=== PATIENT | female | born 1960 | race Caucasian/White ===

== ENCOUNTER 2019-12-16 15:28 | Outpatient (CLI) | payer OTHER, SELFPAY ==
--- NOTE | 2019-12-16 15:31 | ECG_ITS ---
Measurements Intervals [place] Rate: 69 P: 46 [place]: 191 QRS: -16 QRSD: 108 T: 19 QT: 403 QTc: 432 Interpretive Statements SINUS RHYTHM POOR R WAVE PROGRESSION, ANTERIOR LEADS BORDERLINE ST-T WAVE ABNORMALITY- ANTERIOR LEADS BASELINE ARTIFACT- I, III, AVL, AVF, V6 BORDERLINE ECG Electronically Signed On 12-16-2019 16:39:32 CDT by Reed Thompson D.O.
[2019-12-16 16:14] LABS: Blood Urea Nitrogen 38 mg/dL (7-17); Calcium 9.7 mg/dL (8.4-10.2); Carbon Dioxide 31 mmol/L (22-30); Chloride 102 mmol/L (98-107); Estimated Glomerular Filt Rate 50; Glucose 89 mg/dL (65-105); Potassium 4.2 mmol/L (3.4-5.0); Sodium 138 mmol/L (137-145)
== END 2019-12-16 15:29 | disposition home or self-care (01) ==
LOC: ANHSURGERY 15:31
PROVIDERS: Anesthesiology; PCP Family Medicine; Visit Provider Orthopaedic Surgery
DX: I10 Essential (primary) hypertension (principal)
CPT/HCPCS: 36415; 80048; 93005

== ENCOUNTER 2020-02-27 00:04 | Outpatient (CLI) | payer OTHER, SELFPAY ==
[2020-02-27 18:00] LABS: SARS-CoV-2 RNA PCR Negative
== END 2020-02-27 00:05 | disposition home or self-care (01) ==
LOC: ANHCOVIDDT 00:04
PROVIDERS: PCP Family Medicine; Visit Provider Orthopaedic Surgery
DX: Z01.818 Encounter for other preprocedural examination (principal); Z11.59 Encounter for screening for other viral diseases
CPT/HCPCS: 87635; C9803; U0003

== ENCOUNTER 2020-03-01 00:55 | Day surgery (SDC) | payer OTHER, SELFPAY ==
[2019-12-15 15:32] VITALS: BMI 43.8
--- NOTE | 2020-02-19 12:58 | PC.NURSE ---
PT HEALTH HISTORY AND MEDICATIONS REVIEWED. NEW INSTRUCTIONS GIVEN. PT STATES UNDERSTANDING.
[2020-03-01] VITALS (9 sets, daily range): BP systolic 96–147; BP diastolic 55–71; PULSE 63–75; RESP 14–21; TEMP 36.4–36.9; O2SAT 93–100
--- NOTE | 2020-03-01 07:31 | WPDHPUPDATE1 ---
History and Physical Update Update Date/Time: 03/01/20 07:31 History and Physical has been reviewed, including an updated exam of the patient. There are NO changes in the patient's condition. Risks, benefits, and alternatives have been discussed and questions answered. Patient agrees to proceed with procedure.
[2020-03-01] MEDS: LACTATED RINGERS 1,000 ML 30 ML IV CONT ×2 (08:05→10:52)
[2020-03-01] MEDS: CELECOXIB 200 MG CAPSULE PO (08:14)
--- NOTE | 2020-03-01 08:34 | WPDANESEPPF ---
Anes - Initial Pre Proc Eval Procedure: Operation Date: 03/01/20 09:00 Proposed Procedures p Right Knee Arthroscopy, Proceed As Indicated - Varun Hilton MD Date/Time: 03/01/20 08:34 Surgeon: Varun Hilton MD Pre Op Diagnosis: Right Lateral Meniscus Tear Patient Data Age: 59 Gender: F Height: 5 ft 6 in Weight: 119.5 kg Last Vital Signs Temp 98.5 F 03/01/20 08:33 Pulse 75 03/01/20 08:33 Resp 18 03/01/20 08:33 BP 147/70 H 03/01/20 08:33 Pulse Ox 98 03/01/20 08:33 Allergies Allergy/AdvReac Type Severity Reaction Status Date / Time Penicillins Allergy Mild Hives Verified 03/01/20 07:19 UNKNOWN ANTIBIOTICS Allergy Mild skin Uncoded 01/06/20 09:19 irritation Home Medications Medication Instructions Recorded Confirmed Type acetaminophen 500 mg tablet 500 mg PO Q4H PRN 08/21/19 03/01/20 History ascorbic acid (vitamin C) 500 mg 500 mg PO DAILY 08/21/19 03/01/20 History tablet aspirin 81 mg tablet,delayed 81 mg PO DAILY 08/21/19 03/01/20 History release coenzyme Q10 100 mg capsule 100 mg PO DAILY 08/21/19 03/01/20 History qkpnhpioimh-kjiplesnv-wcek281-hyal 1 tablet PO BID 08/21/19 03/01/20 History 750 mg-100 mg-125 mg-1.65 mg tablet loratadine 10 mg tablet 10 mg PO DAILY 08/21/19 03/01/20 History umxkmvui-dadqvwh-mjjt-iron fum 18 1 tablet PO DAILY 08/21/19 03/01/20 History mg-folic 600 mcg-vit K 80 mcg tablet triamterene 75 1 tablet PO DAILY #90 tablet 09/09/19 03/01/20 Rx mg-hydrochlorothiazide 50 mg tablet chlorhexidine gluconate 4 % 1 applic TOPICAL ONCE #237 ml 10/26/19 03/01/20 Rx topical liquid lisinopril 20 mg tablet 20 mg PO DAILY #90 tablet 11/16/19 03/01/20 Rx iodine (kelp) 0.15 mg tablet 520 mcg PO DAILY tablet 12/07/19 03/01/20 History lecithin 1,200 mg capsule 1,200 mg PO DAILY 12/07/19 03/01/20 History vitamin E 800 unit PO DAILY 12/15/19 03/01/20 History cholecalciferol (vitamin D3) 125 5,000 unit PO 3XW 01/06/20 03/01/20 History mcg (5,000 unit) capsule guaifenesin 1,200 mg tablet, 1,200 mg PO PRN PRN tablet 01/06/20 03/01/20 History extended release 12 hr turmeric root extract 500 mg 500 mg PO DAILY 01/06/20 03/01/20 History capsule levothyroxine 75 mcg tablet 75 mcg PO QAM #90 tablet 01/20/20 03/01/20 Rx fluticasone propionate 50 2 spray NASAL DAILY #18.2 ml 02/03/20 03/01/20 Rx mcg/actuation nasal spray,suspension meloxicam 7.5 mg tablet 7.5 mg PO DAILY #90 tablet 02/03/20 03/01/20 Rx Patient hx anesthesia problems: none Family hx anesthesia problems: none PMFSH Past Medical History Medical History (Updated 02/23/20 @ 13:37 by ADA Armendariz) Basal cell carcinoma Chronic low back pain Dyslipidemia (high LDL; low HDL) Environmental allergies Hypertension Hypothyroidism PAMELA (obstructive sleep apnea) Osteoarthritis Pre-diabetes Rheumatic fever Surgical History Surgical History History of 1989 and 1995 S/P lumbar spinal fusion 2017 Family History Family History (Updated 02/23/20 @ 13:38 by ADA Armendariz) Sibling Diabetes mellitus Family history of cardiovascular disease Father Family history of cardiovascular disease Grandparent Family history of cardiovascular disease Other Breast cancer, Onset Age: 60 Other No problems noted. Other Hypertension Social History Social History (Updated 02/23/20 @ 13:40 by ADA Armendariz) Social History: Currently not working due to COVID-19. 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
[2020-03-01] MEDS: ceFAZolin 2 GM/D5W 50 ML 2 GM/50 ML BAG IVPB (09:33)
--- NOTE | 2020-03-01 10:31 | SUR.OPER ---
1 ml of depo-medrol given in right knee per Dr Hilton
--- NOTE | 2020-03-01 10:54 | PM.OP ---
Procedure Note - Brief Procedure Note - Brief Date of procedure: 03/01/20 Pre-op diagnosis: Right Lateral Meniscus Tear Post-op diagnosis: same Procedure performed: right knee scope Anesthesia: GETA Surgeon: Varun Hilton MD Estimated blood loss (mL): 5 Complications: No immediate complications Condition: stable Disposition: PACU
--- NOTE | 2020-03-01 13:04 | OP_ITS ---
DATE OF PROCEDURE: 03/01/2020 PREOPERATIVE DIAGNOSIS: Right knee medial meniscus tear and lateral meniscus tear and chondromalacia. POSTOPERATIVE DIAGNOSIS: Right knee medial meniscus tear and lateral meniscus tear and chondromalacia with full-thickness defect of the lateral compartments. PROCEDURE: Right knee arthroscopy with partial medial meniscectomy, partial lateral meniscectomy, major synovectomy, and chondroplasty. ANESTHESIA: General. COMPLICATIONS: None. INDICATIONS: This is a 59-year-old female with a history of right knee pain. She was diagnosed with medial and lateral meniscus tears and some mild DJD. She was indicated for right knee arthroscopy. The patient was taken to the operating room in stable condition and placed in supine position. General anesthesia was induced and the right lower extremity prepped and draped sterilely from the toes to the thigh. Superomedial portal was used for the inflow cannula. Inferolateral portal was used for the camera. The camera was introduced. There was grade 2 chondromalacia of the patella and to the trochlea of the femur, there was significant amount of synovitis in the superior medial compartment with large plica band as well. There was also significant synovitis in Hoffa synovium. The medial compartment was entered, there was a small complex tear of the medial meniscus. This was resected after a 4-0 was established with a shaver and a biter and the medial femoral condyle also had about 2 cm grade 2 chondromalacia defect and that was resected and smoothed out with the shaver. Next, the ACL was identified and was intact. Synovectomy was performed in that region. The lateral compartment was entered. There was a large complex tear to the lateral meniscus, pain in the posterior horn. There was also full-thickness defect of the lateral femoral condyle and the lateral plateau. The meniscus tear then was resected and then limited chondroplasty was performed along the lateral compartment as well. Synovectomy was performed on the impinging synovium in the lateral compartment. Next, the patella and the trochlea underwent chondroplasty until there was a smoother surface. The wound was irrigated thoroughly. The instruments were removed. The incisions were approximated with 4-0 nylon suture. Sterile dressing was applied. The patient was extubated. Nic I MT: Annie
--- NOTE | 2020-03-01 13:43 | SUR.PHASEII ---
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
== END 2020-03-01 13:56 | disposition home or self-care (01) ==
PROVIDERS: PCP Family Medicine; Visit Provider Orthopaedic Surgery
PROC: (CPT 29870; principal; 2020-03-01 09:00)
DX: S83.231A Complex tear of medial meniscus, current injury, right knee, initial encounter (principal); S83.271A Complex tear of lateral meniscus, current injury, right knee, initial encounter; X50.0XXA Overexertion from strenuous movement or load, initial encounter; M94.261 Chondromalacia, right knee; M65.861 Other synovitis and tenosynovitis, right lower leg; I10 Essential (primary) hypertension; E78.5 Hyperlipidemia, unspecified; E03.9 Hypothyroidism, unspecified; R73.03 Prediabetes; G47.33 Obstructive sleep apnea (adult) (pediatric); G89.29 Other chronic pain; M54.9 Dorsalgia, unspecified; Z79.82 Long term (current) use of aspirin; Z98.1 Arthrodesis status; Z87.891 Personal history of nicotine dependence; E66.01 Morbid (severe) obesity due to excess calories; Z68.41 Body mass index [BMI] 40.0-44.9, adult
CPT/HCPCS: 29880; A9270; J0131; J0690; J1040; J1100; J2250; J2405; J2704; J3010; J7120

== ENCOUNTER 2020-05-10 16:48 | Outpatient (CLI) | payer OTHER, SELFPAY ==
--- NOTE | ~2020-05-10 | MM_ITS ---
EXAMINATION: MM screening rebecca BI w essie HISTORY: Screening TECHNIQUE: Craniocaudal and mediolateral oblique 3-D tomosynthesis images were obtained and synthetic 2-D images were generated. CAD analysis was submitted and interpreted. COMPARISON: Comparison to multiple prior studies sequentially, with oldest reviewed study dated 10/09. BREAST PARENCHYMAL COMPOSITION: The breasts are almost entirely fatty. FINDINGS: There is no evidence of suspicious mass, calcification, or architectural distortion to sugg est malignancy in either breast. There has been no suspicious interval change. IMPRESSION: 1. No mammographic evidence of malignancy. 2. Recommend routine screening mammography in one year. BI-RADS Category 1: Negative Reviewed, dictated and finalized at location A.
== END 2020-05-10 16:49 | disposition home or self-care (01) ==
LOC: ANHIMG 16:50
PROVIDERS: PCP Family Medicine; Visit Provider Obstetrics & Gynecology
DX: Z12.31 Encounter for screening mammogram for malignant neoplasm of breast (principal)
CPT/HCPCS: 77063; 77067

== ENCOUNTER 2021-04-14 16:47 | Emergency (ER) | payer OTHER, SELFPAY ==
[2021-04-14 16:53] VITALS: BP 163/67; PULSE 71; RESP 12; TEMP 36.8; O2SAT 99
--- NOTE | 2021-04-14 16:53 | ED.EYEPROB ---
HPI - Eye Problem General Chief complaint: Eye Problems Stated complaint: eye irritation Time Seen by Provider: 04/14/21 16:53 Source: patient and RN notes reviewed Mode of arrival: ambulatory Limitations: no limitations History of Present Illness HPI Narrative: 60-year-old female presents to the [facility] with complaints of redness and goopiness to the left eye that started yesterday. States that she normally uses allergy eyedrops but has not used any today. Denies any blurry vision or change in vision. Patient does not wear contacts. Denies any trauma to the eye. Related Data Home Medications Medication Instructions Recorded Confirmed ascorbic acid (vitamin C) 500 mg 500 mg PO DAILY 08/21/19 04/14/21 tablet aspirin 81 mg tablet,delayed 81 mg PO DAILY 08/21/19 04/14/21 release coenzyme Q10 100 mg capsule 100 mg PO DAILY 08/21/19 04/14/21 ocgzfslrbcv-bshkdymib-tyne136-hyal 1 tablet PO BID 08/21/19 04/14/21 750 mg-100 mg-125 mg-1.65 mg tablet loratadine 10 mg tablet 10 mg PO DAILY 08/21/19 04/14/21 yznumeaf-ncuwhgq-ufjk-iron fum 18 1 tablet PO DAILY 08/21/19 04/14/21 mg-folic 600 mcg-vit K 80 mcg tablet iodine (kelp) 0.15 mg tablet 520 mcg PO DAILY tablet 12/07/19 04/14/21 lecithin 1,200 mg capsule 1,200 mg PO DAILY 12/07/19 04/14/21 vitamin E 800 unit PO DAILY 12/15/19 04/14/21 cholecalciferol (vitamin D3) 125 5,000 unit PO 3XW 01/06/20 04/14/21 mcg (5,000 unit) capsule Allergies Allergy/AdvReac Type Severity Reaction Status Date / Time Penicillins Allergy Mild Hives Verified 04/14/21 17:00 UNKNOWN ANTIBIOTICS Allergy Mild skin Uncoded 07/20/20 15:53 irritation Review of Systems Review of Systems: All systems reviewed & are unremarkable except as noted in HPI and below Constitutional: Constitutional: Reports no additional constitutional complaints, Denies chills and Denies fever(s) Eyes: Eyes: Reports as per HPI, Denies change in vision and Denies photophobia Comments: Discharge and irritation, crusted this morning ENT: Reports system reviewed and no additional complaints, except as documented, Denies vertigo, Denies dizziness and Denies nasal congestion Cardiovascular: Cardiovascular: Reports no additional cardiovascular complaints and Denies chest pain Respiratory: Respiratory: Reports no additional respiratory complaints, Denies cough, Denies dyspnea and Denies wheezing Gastrointestinal: Gastrointestinal: Reports no additional gastrointestinal complaints Musculoskeletal: Musculoskeletal: Reports no additional musculoskeletal complaints Integumentary/Breasts: Skin/Breast: Reports system reviewed and no additional complaints, except as docu Neurologic: Reports system reviewed and no additional complaints, except as documented Psychiatric: Psychiatric: Reports no additional psychiatric complaints Allergic/Immunologic: Allergic/Immunologic: Reports no additional allergic/immunologic complaints [facility] Past Medical History Medical History Basal cell carcinoma BMI greater than 40 Chronic low back pain Degenerative joint disease of knee Dyslipidemia (high LDL; low HDL) Environmental allergies Hypertension Hypothyroidism PAMELA (obstructive sleep apnea) Osteoarthritis Pre-diabetes Rheumatic fever Surgical History Surgical History History of arthroscopy of right knee 03/19 - meniscus repair History of basal cell carcinoma excision 2013 - upper lip History of 1989 and 1995 History of endometrial ablation 2004 S/P lumbar spinal fusion 2016 Family History Family History Sibling Diabetes mellitus Family history of cardiovascular disease Father Family history of cardiovascular disease Grandparent Family history of cardiovascular disease Other Breast cancer, Onset Age: 60 Other No problems noted.
== END 2021-04-14 17:09 | disposition home or self-care (01) ==
PROVIDERS: Emergency Provider Nurse Practitioner; PCP Family Medicine
DX: H10.32 Unspecified acute conjunctivitis, left eye (principal); Z87.891 Personal history of nicotine dependence; M17.10 Unilateral primary osteoarthritis, unspecified knee; R78.5 Finding of other psychotropic drug in blood; I10 Essential (primary) hypertension; E03.9 Hypothyroidism, unspecified; G47.33 Obstructive sleep apnea (adult) (pediatric); M19.90 Unspecified osteoarthritis, unspecified site; R73.03 Prediabetes
CPT/HCPCS: 99213; G0463

== ENCOUNTER 2021-05-11 15:52 | Outpatient (CLI) | payer OTHER, SELFPAY ==
--- NOTE | ~2021-05-11 | MM_ITS ---
EXAMINATION: MM screening rebecca BI w essie HISTORY: Screening TECHNIQUE: Craniocaudal and mediolateral oblique 3-D tomosynthesis images were obtained and synthetic 2-D images were generated. CAD analysis was submitted and interpreted. COMPARISON: Comparison to multiple prior studies sequentially, with oldest reviewed study dated 10/11. BREAST PARENCHYMAL COMPOSITION: The breasts are almost entirely fatty. FINDINGS: There is no evidence of suspicious mass, calcification, or architectural distortion to sugg est malignancy in either breast. There has been no suspicious interval change. IMPRESSION: 1. No mammographic evidence of malignancy. 2. Recommend routine screening mammography in one year. BI-RADS Category 1: Negative Reviewed, dictated and finalized at location A.
== END 2021-05-11 15:53 | disposition home or self-care (01) ==
LOC: ANHIMG 15:56
PROVIDERS: PCP Family Medicine; Visit Provider Family Medicine
DX: Z12.31 Encounter for screening mammogram for malignant neoplasm of breast (principal)
CPT/HCPCS: 77063; 77067

== ENCOUNTER → 2021-09-27 01:41 | Outpatient (CLI) | payer OTHER, SELFPAY ==
[2021-09-28 02:21] LABS: SARS-CoV-2 RNA PCR Negative
== END ==
PROVIDERS: PCP Family Medicine; Visit Provider Nurse Practitioner
DX: Z20.822 Contact with and (suspected) exposure to COVID-19 (principal)
CPT/HCPCS: C9803; U0003; U0005

== ENCOUNTER 2022-06-05 08:17 | Outpatient (CLI) | payer OTHER, SELFPAY ==
--- NOTE | ~2022-06-05 | MM_ITS ---
EXAMINATION: MM screening rebecca BI w essie HISTORY: Screening mammogram TECHNIQUE: Craniocaudal and mediolateral oblique 3-D tomosynthesis images were obtained and synthetic 2-D images were generated. CAD analysis was submitted and interpreted. COMPARISON: 05/11/2021, 04/30/2020, 04/13/2019 bilateral screening mammogram examinations BREAST PARENCHYMAL COMPOSITION: The breasts are almost entirely fatty. FINDINGS: Scattered bilateral benign calcifications. There is no evidence of suspicious mass, calcifi cation, or architectural distortion to suggest malignancy in either breast. There has been no suspici ous interval change. IMPRESSION: 1. No mammographic evidence of malignancy. 2. Recommend routine screening mammography in one year. BI-RADS Category 1: Negative Reviewed, dictated and finalized at location A.
== END 2022-06-05 08:18 | disposition home or self-care (01) ==
LOC: ANHIMG 08:18
PROVIDERS: PCP Family Medicine; Visit Provider Obstetrics & Gynecology
DX: Z12.31 Encounter for screening mammogram for malignant neoplasm of breast (principal)
CPT/HCPCS: 77063; 77067

== ENCOUNTER 2023-05-10 01:50 | Day surgery (SDC) | payer OTHER, SELFPAY ==
[2023-05-01 10:59] VITALS: BMI 45.6
[2023-05-10 12:10] VITALS: BP 166/91; PULSE 68; RESP 18; TEMP 36.2; O2SAT 100; BMI 43.9
[2023-05-10] MEDS: LACTATED RINGERS 1,000 ML 150 ML IV CONT (12:41)
--- NOTE | 2023-05-10 12:56 | WPDANESEPPF ---
Anes - Initial Pre Proc Eval Procedure: Operation Date: 05/10/23 13:30 Proposed Procedures p Screening Colonoscopy - Korey Arauz MD Date/Time: 05/10/23 12:56 Surgeon: Korey Arauz MD Pre Op Diagnosis: neoplasm screening, hx colon polyps Patient Data Age: 62 Gender: F Height: 1.68 m Weight: 123.6 kg Last Vital Signs Temp 97.1 F L 05/10/23 12:10 Pulse 68 05/10/23 12:10 Resp 18 05/10/23 12:10 BP 166/91 H 05/10/23 12:10 Pulse Ox 100 05/10/23 12:10 O2 Del Method Room Air 05/10/23 12:10 Allergies Allergy/AdvReac Type Severity Reaction Status Date / Time amoxicillin Allergy Intermediate Hives Verified 05/10/23 12:16 Penicillins Allergy Intermediate Hives Verified 05/10/23 12:16 UNKNOWN ANTIBIOTICS Allergy Mild skin Uncoded 05/10/23 12:16 irritation Home Medications Medication Instructions Recorded Confirmed Type ascorbic acid (vitamin C) 500 mg 500 mg PO DAILY 08/21/19 05/10/23 History tablet lsimfcekvgx-mpwlfbuun-xwel982-hyal 1 tablet PO BID 08/21/19 05/10/23 History 750 mg-100 mg-125 mg-1.65 mg tablet (Glucosamine Chondroit Complx Advan) loratadine 10 mg tablet 10 mg PO DAILY 08/21/19 05/10/23 History dhipncgn-yyvnsbr-bhuk-iron fum 18 1 tablet PO DAILY 08/21/19 05/10/23 History mg-folic 600 mcg-vit K 80 mcg tablet (Multi For Her) lecithin 1,200 mg capsule 1,200 mg PO DAILY 12/07/19 05/10/23 History vitamin E 268 mg (400 unit) capsule 800 unit PO DAILY 12/15/19 05/10/23 History cholecalciferol (vitamin D3) 125 5,000 unit PO .QOD 09/11/21 05/10/23 History mcg (5,000 unit) capsule coenzyme Q10 200 mg capsule 200 mg PO DAILY #90 caps 01/29/23 05/10/23 Rx meloxicam 7.5 mg tablet 7.5 mg PO DAILY #90 tabs 03/26/23 05/10/23 Rx omeprazole 20 mg capsule,delayed 20 mg PO DAILY #90 caps 03/26/23 05/10/23 Rx release levothyroxine 75 mcg tablet 75 mcg PO DAILY #90 tabs 04/24/23 05/10/23 Rx lisinopril 20 mg tablet 20 mg PO DAILY #90 tabs 04/24/23 05/10/23 Rx triamterene 75 1 tablet PO DAILY #90 tabs 04/24/23 05/10/23 Rx mg-hydrochlorothiazide 50 mg tablet rosuvastatin 5 mg tablet (Crestor) 5 mg PO QHS #90 tabs 04/25/23 05/10/23 Rx iodine (kelp) 1 tablet PO 5XW 05/01/23 05/10/23 History olopatadine 0.2 % eye drops 1 drp EACH EYE DAILY 05/01/23 05/10/23 History Patient hx anesthesia problems: none Family hx anesthesia problems: none Results Review: All pre-operative results and documents have been reviewed as part of the pre-operative evaluation. [facility] Past Medical History Medical History Basal cell carcinoma BMI greater than 40 Chronic low back pain Degenerative joint disease of knee Dyslipidemia (high LDL; low HDL) Environmental allergies History of colon polyps Hypertension Hypothyroidism PAMELA (obstructive sleep apnea) Osteoarthritis Pre-diabetes Rheumatic fever Screening mammogram, encounter for Shingles (~12/2020) Surgical History Surgical History History of arthroscopy of right knee (~02/2020) 03/19 - meniscus repair History of basal cell carcinoma excision (~2013) 2013 - upper lip History of 1989 and 1995 History of endometrial ablation (~2004) 2004 S/P lumbar spinal fusion (~2016) 2016 Family History Family History Sibling Diabetes mellitus Family history of cardiovascular disease Father Family history of cardiovascular disease Grandparent Family history of cardiovascular disease Other Breast cancer, Onset Age: 60 Other No problems noted. Other Hypertension Social History Social History Social History: Currently not working due to [employer]. 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 Smoking packs per day: 1 Smoking cigarettes per day: 20.0 Years smoked: 10 Smoking pack
--- NOTE | 2023-05-10 13:23 | PM.HPGS ---
History of Present Illness History of Present Illness Consent: Risks, benefits, and alternatives have been discussed and questions answered. Patient agrees to proceed with procedure. Chief complaint: neoplasm screening, hx colon polyps Narrative: Mayra Monroy is a 62 year old female Presents for screening colonoscopy. Patient's current weight appetite and bowel movements are normal. Patient denies abdominal pain. She has had no bleeding. She does have a prior history of colon polyps in 2010. Per colonoscopy 2018 was unremarkable. Family history is significant both her mother and sister have had colon polyps. Review of Systems Review of Systems: Review of systems noncontributory. [facility] Past Medical History Medical History Basal cell carcinoma BMI greater than 40 Chronic low back pain Degenerative joint disease of knee Dyslipidemia (high LDL; low HDL) Environmental allergies History of colon polyps Hypertension Hypothyroidism PAMELA (obstructive sleep apnea) Osteoarthritis Pre-diabetes Rheumatic fever Screening mammogram, encounter for Shingles (~12/2020) Surgical History Surgical History History of arthroscopy of right knee (~02/2020) 03/19 - meniscus repair History of basal cell carcinoma excision (~2013) 2013 - upper lip History of 1989 and 1995 History of endometrial ablation (~2004) 2004 S/P lumbar spinal fusion (~2016) 2016 Family History Family History Sibling Diabetes mellitus Family history of cardiovascular disease Father Family history of cardiovascular disease Grandparent Family history of cardiovascular disease Other Breast cancer, Onset Age: 60 Other No problems noted. Other Hypertension Social History Social History Social History: Currently not working due to [employer]. 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 Smoking packs per day: 1 Smoking cigarettes per day: 20.0 Years smoked: 10 Smoking pack-years: 10.00 Smoking status: Former smoker Tobacco type: cigarettes Smoking end date: 09/30/85 Alcohol intake: never Substance use: never Substance use type: does not use Lack of Transportation: No Lack of Food: Never True Current Housing: I Have Housing Concerned About Future Housing: No Difficulty Paying Gas/Electric Bills: No Difficulty Paying for Meds: No Currently Unemployed: No Education: High School Diploma/GED Difficulty w/ Childcare or Family Care: No Living arrangements: with family Occupation/Education: occupation 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 [employer] Gender identity (if verbalized by the patient): Female Sexual Orientation (if Verbalized by the Patient): Straight or Heterosexual Spiritual care concerns: No Meds Home Medications and Allergies Home Medications Medication Instructions Recorded Confirmed Type ascorbic acid (vitamin C) 500 mg 500 mg PO DAILY 08/21/19 05/10/23 History tablet jugpxybulba-jqievuobk-hbqx696-hyal 1 tablet PO BID 08/21/19 05/10/23 History 750 mg-100 mg-125 mg-1.65 mg tablet (Glucosamine Chondroit Complx Advan) loratadine 10 mg tablet 10 mg PO DAILY 08/21/19 05/10/23 History hqkmuxfy-kunpwxt-qpbb-iron fum 18 1 tablet PO DAILY 08/21/19 05/10/23 History mg-folic 600 mcg-vit K 80 mcg tablet (Multi For Her) lecithin 1,200 mg capsule 1,200 mg PO DAILY 12/07/19 05/10/23 History vitamin E 268 mg (400 unit) capsule 800 unit PO DAILY 12/15/19 05/10/23 History cholecalciferol (vitamin D3) 125 5,000 unit PO .QOD 09/11/21 05/10/23 History mcg (5,000 unit) capsule coenzyme Q10 200 mg capsule 200 mg PO DAILY #90 caps 01/29/23 05/10/23 Rx meloxicam 7.5 mg tablet 7.5 mg PO DAILY #90 tabs 03/26/23 05/10/23
[2023-05-10 14:00] VITALS: BP 94/53; PULSE 71; RESP 23; O2SAT 97
[2023-05-10 14:10] VITALS: BP 101/60; PULSE 67; RESP 20; O2SAT 97
[2023-05-10 14:20] VITALS: BP 128/62; PULSE 65; RESP 20; O2SAT 99
== END 2023-05-10 14:31 | disposition home or self-care (01) ==
PROVIDERS: PCP Family Medicine; Visit Provider Internal Medicine Gastroenterology
PROC: 0DJD8ZZ Inspection of Lower Intestinal Tract, Via Natural or Artificial Opening Endoscopic (ICD-10-PCS; CPT 45378; principal; 2023-05-10 13:30)
DX: Z12.11 Encounter for screening for malignant neoplasm of colon (principal); K64.8 Other hemorrhoids; K57.32 Diverticulitis of large intestine without perforation or abscess without bleeding; Z86.010 Personal history of colon polyps; I10 Essential (primary) hypertension; E03.9 Hypothyroidism, unspecified; G47.33 Obstructive sleep apnea (adult) (pediatric); E78.5 Hyperlipidemia, unspecified; Z87.891 Personal history of nicotine dependence; E66.01 Morbid (severe) obesity due to excess calories; Z68.41 Body mass index [BMI] 40.0-44.9, adult
CPT/HCPCS: 45378; J2704; J7120

== ENCOUNTER 2023-07-18 08:56 | Outpatient (CLI) | payer MEDICARE, SELFPAY ==
--- NOTE | ~2023-07-18 | MM_ITS ---
EXAMINATION: MM screening rebecca BI w essie HISTORY: Screening TECHNIQUE: Craniocaudal and mediolateral oblique 3-D tomosynthesis images were obtained and synthetic 2-D images were generated. CAD analysis was submitted and interpreted. COMPARISON: Comparison to multiple prior studies sequentially, with oldest reviewed study dated 10/22. BREAST PARENCHYMAL COMPOSITION: The breasts are almost entirely fatty. FINDINGS: There is no evidence of suspicious mass, calcification, or architectural distortion to sugg est malignancy in either breast. There has been no suspicious interval change. IMPRESSION: 1. No mammographic evidence of malignancy. 2. Recommend routine screening mammography in one year. BI-RADS Category 1: Negative Reviewed, dictated and finalized at location A.
== END 2023-07-18 08:57 | disposition home or self-care (01) ==
PROVIDERS: PCP Family Medicine; Visit Provider Obstetrics & Gynecology
DX: Z12.31 Encounter for screening mammogram for malignant neoplasm of breast (principal)
CPT/HCPCS: 77063; 77067

== ENCOUNTER 2023-08-20 14:35 | Outpatient (CLI) | payer MEDICARE, SELFPAY | END 2023-08-20 14:36 | disposition home or self-care (01) | LOC: ANHLAB 14:37 | PROVIDERS: PCP Family Medicine; Visit Provider Family Medicine | DX: R05.9 Cough, unspecified (principal) | CPT/HCPCS: 87634 ==

== ENCOUNTER 2024-08-10 10:58 | Outpatient (CLI) | payer MEDICARE, SELFPAY ==
--- NOTE | ~2024-08-10 | MM_ITS ---
EXAMINATION: MM screening [facility] BI w essie HISTORY: Screening mammogram TECHNIQUE: Craniocaudal and mediolateral oblique 3-D tomosynthesis images were obtained and synthetic 2-D images were generated. CAD analysis was submitted and interpreted. COMPARISON: 07/18/2023, 06/05/2022, 05/11/2021, 05/10/2020 BREAST PARENCHYMAL COMPOSITION:Not Dense. The breasts are almost entirely fatty FINDINGS: No suspicious mass, calcification, or architectural distortion are identified in either marty ast to suggest malignancy. There has been no suspicious interval change. IMPRESSION: No mammographic evidence of malignancy. Recommend routine screening mammography in one year. BI-RADS Category 1: Negative Reviewed, dictated and finalized at location . [employer]
== END 2024-08-10 10:59 | disposition home or self-care (01) ==
LOC: MICIMG 11:00
PROVIDERS: PCP Obstetrics & Gynecology; Visit Provider Obstetrics & Gynecology
DX: Z12.31 Encounter for screening mammogram for malignant neoplasm of breast (principal)
CPT/HCPCS: 77063; 77067

== ENCOUNTER 2024-12-29 10:21 | Outpatient (CLI) | payer MEDICARE, SELFPAY ==
--- NOTE | ~2024-12-29 | DEXA_ITS ---
Bone Density Report Name: ELIANA CONNOLLY Age: 64 Sex: Female Ethnicity: White Date of : 1960 Indication: postmenopausal; screening for osteoporosis; Referring Provider: OSVALDO RODRIGUES Study: Bone densitometry was performed. Exam Date: December 29, 2024 Accession number: [id number] Bone Density: Region BMD T-score Z-score Classification AP Spine(L3, L4) 1.265 1.5 3.5 Normal Femoral Neck (Left) 1.012 1.5 3.1 Normal Total Hip (Left) 1.239 2.4 3.7 Normal Femoral Neck (Right) 1.050 1.8 3.4 Normal Total Hip (Right) 1.190 2.0 3.3 Normal Total Hip Mean 1.215 2.2 3.5 Normal World Health Organization criteria for BMD impression classify patients as: Normal (T-score at or above -1.0), Osteopenia (T-score between -1.0 and -2.5), or Osteoporosis (T-score at or below -2.5). 10-year Fracture Risk: FRAX not reported because: All T-scores for Spine Total, Hip Total, Femoral Neck at or above -1.0 Previous Exams: Region Exam Age BMD T-score BMD Change BMD Change Date g/cm2 vs Baseline vs Previous Total Hip(Left) 12/29/2024 64 1.239 2.4 -0.033 (-2.6%) -0.033 (-2.6%) 10/05/2019 59 1.272 2.7 Total Hip(Right) 12/29/2024 64 1.190 2.0 -0.057 (-4.6%) -0.057 (-4.6%) 10/05/2019 59 1.247 2.5 *Denotes significance at 95% confidence level, LSC for Total Hip = 0.027 g/cm2 # Denotes dissimilar scan types or analysis methods Clinical Information Provided by Patient: Has used the following medications: Vitamin D, Calcium Patient maximum height was 65 Menopause Age: 48 Onset of menses at age 9 Number of children 2 Impression: The patient has normal bone mass. No significant bone loss was observed. Discussion: LOW RISK OF FRACTURE; BONE DENSITY IS WELL ABOVE THE MINIMUM DESIRABLE LEVEL AND ABOVE AVERAGE FOR AGE AND SEX AT ALL SKELETAL SITES TESTED. This person's bone density is above expected limits for age and sex. This is rarely clinically significant, but should be pursued if there are significant musculoskeletal complaints. The patient should follow a healthful lifestyle (good nutrition with adequate calcium and vitamin D, and appropriate weight-bearing exercise). Follow-Up: Consider repeating this study in 5 years or sooner if there is some new clinical indication. Reported by: CLEOPATRA on 12/29/2024 10:56:00 AM. Reviewed, dictated and finalized at location [facility] ALLEN
--- OUTSIDE RECORDS SUMMARY | 2024-12-29 11:22 | XMS_ITS | Clinical Summary ---
Author Organization [facility] Address [address] [place] [address] Care Team Providers Care Seed Cleaning Machine Operator Name Role Phone Binh Campa Primary Care Provider [phone] Allergies Active Allergy Reactions Criticality Noted Date Comments Amoxicillin Hives Medium 08/19/2018 Prochlorperazine Unknown 07/02/2022 Medications levothyroxine (SYNTHROID, LEVOTHROID) 50 mcg tablet Take 50 mcg by mouth hazardous substances scientist before breakfast. Active triamterene-hyd roCHLOROthiazid e (MAXZIDE,DYAZID E) 75-50 mg per tablet Take 1 tablet by mouth daily. Active lisinopril (PRINIVIL,ZESTR IL) 20 mg tablet Take 20 mg by mouth daily. Active loratadine (CLARITIN) 10 mg tablet Take 10 mg by mouth daily. Active vitamin E 400 unit capsule Take 800 Units by mouth daily. Active lecithin 1,200 mg capsule Take 1 capsule by mouth daily. Active ascorbic acid 500 mg tablet,chewable Take 500 mg by mouth daily. Active multivitamin capsule Take 1 capsule by mouth nightly. Active glucosamine/cho ndr bueno A sod (GLUCOSAMINE-CH ONDROITIN) 167-133 mg capsule Take 1 capsule by mouth 2 (two) times a day. Active aspirin 81 mg tablet Take 81 mg by mouth daily. Active acetaminophen (TYLENOL) 500 mg tablet Take 500 mg by mouth 2 (two) times a day. Active cholecalciferol (VITAMIN D-3) 5,000 unit capsule Take 5,000 Units by mouth daily. Active docusate sodium (COLACE) 100 mg capsuleIndicati ons:constipatio n Take 100 mg by mouth daily. Active guaiFENesin ER (MUCINEX) 600 mg 12 hr tablet Take 1,200 mg by mouth as needed for cough. Active meloxicam (MOBIC) 7.5 mg tablet 05/16/2022 Active Active Problems Problem Noted Date Diagnosed Date Lumbar stenosis with neurogenic claudication Overview (08/19/2018): S/p L3-5 leroy/PSF on 02/14/17 Assessment & Plan (08/19/2018 1:23 PM MD UROLOGIST): Ms. Monroy has had resolution of symptoms after posterior lumbar decompression and fusion. She has returned to work without restriction. We will not set up an appointment, but I would be happy to see her in the future if problems arise. Surgical History Surgery Date Site/Laterality Comments SECTION, CLASSIC 1989 & 1995 BASAL CELL CARCINOMA EXCISION 09/30/2014 - 09/29/2015 POSTERIOR SPINAL FUSION 02/14/2017 L3-5 Posterior Lumbar Fusion (Julius) Medical History Medical History Date Comments HTN (hypertension) Hypothyroidism Arthritis History of basal cell carcinoma right upper lip Sleep apnea uses CPAP History of herpes zoster Family History Medical History Relation Name Comments Diabetes Brother Heart disease Brother Hypertension Brother Heart disease Father Hypertension Father Skin cancer Father Diabetes Sister Hypertension Sister Relation Name Status Comments Brother Father Sister Social History Tobacco Use Types Packs/Day Years Used Date Smoking Tobacco: Former Cigarettes Q uit: 1989 PHQ-2 Answer Date Recorded PHQ-2 Score 0 12/06/2018 Personal Safety Answer Date Recorded Getting School Help Needed Not on file 11/29 Comments Unknown Sex and Gender Information Value Date Recorded Sex Assigned at Not on file Legal Sex Female 2:45 AM MD UROLOGIST Gender Identity Not on file Sexual Orientation Not on file Obstetrics History Last Filed Vital Signs Vital Sign Reading Time Taken Comments Blood Pressure 155/85 07/02/2022 5:29 PM CDT Pulse 74 07/02/2022 5:29 PM CDT Temperature 37 C (98.6 F) 07/02/2022 5:29 PM CDT Respiratory Rate 20 07/02/2022 5:29 PM CDT Oxygen Saturation 97% 07/02/2022 5:29 PM CDT Inhaled Oxygen Concentration - - Weight 120.7 kg (266 lb) 07/02/2022 5:29 PM CDT Height 166.4 cm (5' 5.5 ) 07/02/2022 5:29 PM CDT Body Mass Index 43.59 07/02/2022 5:29 PM CDT Plan of Treatment Health Maintenance Due Date Last Done Comments Breast Cancer Screening-Mammogram 1960 Colon Cancer Screening-Colonoscopy 1960 Depression Screening 1960 Fall Risk Assessment 1960 Hepatitis C Screening 1960 Osteoporosis Screening-Bone Density Scan 1960 Hepatitis B Screening 1976 Pneumococcal vaccine 65+ (1 of 1 - PCV) 2008 Well Visit 65+ 2023 Covid-19 Vaccine ( season) 2024 10/03/2021, 12/22/2020, 12/01/2020 Influenza Vaccine (#1) 2024 07/08/2018 DTaP/Tdap/Td Vaccine (2 - Td or Tdap) 10/03/203112/2021 Zoster Vaccine Completed 10/27/2021, 08/30/2021 Insurance [employer] [facility] [id number] [facility] [id number] Care Teams Seed Cleaning Machine Operator Relationship Specialty Start Date End Date Binh Campa [address] [place] [address] PCP - General 10/24/12
--- OUTSIDE RECORDS SUMMARY | 2024-12-29 11:22 | XMS_ITS | Referral Summary ---
Author Organization [facility] Address [address] [place] [address] Care Team Providers Care Automatic Die Cutting Machine Operator Name Role Phone Binh Campa Primary Care Provider [phone] Allergies Active Allergy Reactions Criticality Noted Date Comments Amoxicillin Hives Medium 08/19/2018 Prochlorperazine Unknown 07/02/2022 Medications levothyroxine (SYNTHROID, LEVOTHROID) 50 mcg tablet Take 50 mcg by mouth waste minimization technician before breakfast. Active triamterene-hyd roCHLOROthiazid e (MAXZIDE,DYAZID [...] 02/14/17 Assessment & Plan (08/19/2018 1:23 PM WREATH AND GARLAND MAKER): Ms. Monroy has had resolution of symptoms after posterior lumbar decompression and fusion. She has returned to work without restriction. We will not set up an appointment, but I would be happy to see her in the future if problems arise. Social History Tobacco Use Types Packs/Day Years Used Date Smoking Tobacco: Former Cigarettes Q uit: 1989 PHQ-2 Answer Date Recorded PHQ-2 Score 0 12/06/2018 Personal Safety Answer Date Recorded Getting School Help Needed Not on file 11/29 Comments Unknown Sex and Gender Information Value Date Recorded Sex Assigned at Not on file Legal Sex Female 2:45 AM WREATH AND GARLAND MAKER Gender Identity Not on file Sexual Orientation Not on file Last Filed Vital Signs Vital Sign Reading [...] 07/02/2022 5:29 PM CDT Plan of Treatment Not on file Insurance [employer] [facility] [id number] [facility] [id number] Care Teams Automatic Die Cutting Machine Operator Relationship Specialty Start Date End Date Binh Campa [address] [place] [address] PCP - General 10/24/12
== END 2024-12-29 10:22 | disposition home or self-care (01) ==
PROVIDERS: PCP Family Medicine; Visit Provider Student in an Organized Health Care Education/Training Program
DX: Z78.0 Asymptomatic menopausal state (principal)
CPT/HCPCS: 77080

== ENCOUNTER 2025-03-29 13:45 | Outpatient (CLI) | payer MEDICARE, SELFPAY ==
[2025-03-29 15:14] LABS: Kit Draw Collected
== END 2025-03-29 13:46 | disposition home or self-care (01) ==
LOC: ANHGOSHLAB 13:46
PROVIDERS: PCP Family Medicine; Visit Provider Family Medicine
DX: E11.9 Type 2 diabetes mellitus without complications (principal)
CPT/HCPCS: 36415